=== PATIENT | female | born 1995 | race Caucasian/White ===

== ENCOUNTER 2019-09-17 10:06 | Emergency (ER) | payer OTHER, MEDICAID ==
[2019-09-17] MEDS ORDERED: Sodium Chloride 0.9% 10 ML Syringe FLUSH PRN (11:23)
[2019-09-17] MEDS ORDERED: Metoclopramide 10 MG/2 ML SDV IVPUSH ONE (11:24)
[2019-09-17] MEDS ORDERED: Sodium Chloride 0.9% 1,000 ML IV ONE (11:24)
[2019-09-17] MEDS ORDERED: diphenhydrAMINE 50 MG/ML SDV IVPUSH ONE (11:24)
[2019-09-17] MEDS ORDERED: Acetaminophen 325 MG Tab PO ONE (11:24)
--- NOTE | 2019-09-17 11:31 | EDM.PDOC ---
ED HPI GENERAL MEDICAL PROBLEM - General Chief Complaint: Headache Stated Complaint: HEADACHE/EYE PAIN (HISTORY OF BRAIN TUMORS) Time Seen by Provider: 09/17/19 11:03 Source of Information: Reports: Patient, Family (mother), RN Notes Reviewed History Limitations: Reports: No Limitations - History of Present Illness INITIAL COMMENTS - FREE TEXT/NARRATIVE: Patient is a 24-year-old female who presents to the ED for the evaluation of her headache. Patient is 32 weeks , G1, P0, and follows with Dr. Hall for MOVEMENT THERAPIST. 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 She has had 2 tumor removals in the past, with a resultant stroke when she was 11, with some right-sided residual neurological deficits. Patient states that since around , she has been having some pain to her left temporal region, eye, ear, and neck, she states she usually does get headaches from time to time, but this seems a little bit different. She states that this feels more like a pressure. She did take 2 tablets of Tylenol last night at around midnight, and she states this did not seem to help much at all. Patient denies any blurred vision or double vision. She did talk with Dr. Hall this morning, but he directed her to come to the ER for MRI for evaluation of the tumors. Mother present in the room also states that she was seen by a dentist earlier today, and had cone beam x-rays taken, and that the patient has a deep cavity that will likely require a root canal on tooth 8. The patient states that she has shooting pain, goes down the neck, into the eye and up the head and into the ear. She also states that she feels increasingly weak and tired but notes that she had a low iron count 2 weeks ago, and was started on iron supplementation along with her vitamins. She further denies any fever/chills, diarrhea, cough/shortness of breath. Mother notes that she has had increasing nausea and vomiting. Patient's neurologist is Dr. Taylor Harris at [facility] in [place]. Patient notes that she is overdue for her MRIs, and her next appointment was supposed to be September 18, but she will not be going to [place] for that appointment. Left Headache Pain Score (Numeric/FACES): 7 - Related Data Allergies Allergy/AdvReac Type Severity Reaction Status Date / Time carboplatin Allergy Anaphylactic Verified 09/17/19 10:21 Shock Home Meds: Home Meds Amoxicillin/Clavulanate K [Augmentin 875-125 MG] 1 tab PO BID #14 tablet 09/17/19 [Rx] Ferrous Sulfate [Iron] 1 mg PO DAILY 09/17/19 [History] Pnv No.95/Ferrous Fum/Folic AC [ Caplet] 1 tab PO BEDTIME 09/17/19 [Hist ory] Past Medical History MOVEMENT THERAPIST History: Reports: : 1 Para: 0 Other MOVEMENT THERAPIST History: irregular menses, breast lump ovarian cysts Neurological History: Reports: CVA, Headaches, Chronic, Other (See Below) Other Neuro History: astrocytoma tumors x5 Hematologic History: Reports: Anemia Oncologic (Cancer) History: Reports: Other (See Below) Other Oncologic History: chemo in the past to help stop growth of brain tumors. Non cancerous tumors - Past Surgical History HEENT Surgical History: Reports: Adenoidectomy, Myringotomy w Tube(s), Tonsillectomy, Other (See Below) Other HEENT Surgeries/Procedures: plastic sx for scar removal Neurological Surgical History: Reports: Other (See Below) Other Neurological Surgeries/Procedures: tumor removal x2 Social & Family History - Family History Family Medical History: Noncontributory - Tobacco Use Smoking Status *Q: Never Smoker Second Hand Smoke Exposure: No - Caffeine Use Caffeine Use: Reports: Soda - Recreational Drug Use Recreational Drug Use: No - Living Situation & Occupation Living situation: Reports: Single Occupation: Student ED ROS GENERAL - Review of Systems Review Of Systems: See Below Constitutional: Reports: Fatigue (generalized). Denies: Fever, Chills HEENT: Reports: Dental Pain (issue with tooth 8) Respiratory: Denies: Shortness of Breath, Cough Cardiovascular: Denies: Chest Pain Endocrine: Denies: Fatigue GI/Abdominal: Reports: Nausea, Vomiting. Denies: Abdominal Pain Neurological: Reports: Headache (left sided headache), Pre-Existing Deficit (right side d/t old stroke). Denies: Trouble Speaking, Difficulty Walking - Physical Exam Exam: See Below Exam Limited By: No Limitations General Appearance: Alert, WD/WN, No Apparent Distress Eye Exam: Right Eye: Normal Inspection, Left Eye: Conjunctival Injection (there are some visible conjuctival hemorrhages), Bilateral Eye: EOMI, PERRL Ears: Normal External Exam Nose: Normal Inspection Throat/Mouth: Normal Inspection, Normal Lips, Normal Teeth, Normal Gums, Normal Oropharynx, Normal Voice, No Airway Compromise Head Exam: Atraumatic, Normocephalic Neck: Normal Inspection, Supple, Non-Tender, Full Range of Motion Respiratory/Chest: No Respiratory Distress, Lungs Clear, Normal Breath Sounds, No Accessory Muscle Use, Chest Non-Tender Cardiovascular: Normal Peripheral Pulses, Regular Rate, Rhythm, No Murmur GI/Abdominal: Normal Bowel Sounds, Soft, Non-Tender, No Distention, No Mass Neuro Exam (Abbreviated): Alert, Oriented, CN II-XII Intact (grossly), Normal Cognition, Normal Gait, No Motor/Sensory Deficits Extremities: Normal Inspection, Normal Capillary Refill Psychiatric: Normal Affect, Normal Mood Skin Exam: Warm, Dry, Intact, Normal Color, No Rash Course - Vital Signs Last Recorded V/S: Last Vital Signs Temp 97.3 F 09/17/19 10:16 Pulse 92 09/17/19 10:16 Resp 18 09/17/19 10:16 BP 131/91 H 09/17/19 10:16 Pulse Ox 98 09/17/19 10:16 - Orders/Labs/Meds Orders: Active Orders 24 hr Category Date Time Status Peripheral IV Care [RC] . DIRECTED Care 09/17/19 11:24 Ordered CBC WITH MANUAL DIFF [HEME] Stat Lab 09/17/19 11:23 Ordered UA W/MICROSCOPIC [URIN] Stat Lab 09/17/19 12:16 Ordered Sodium Chloride 0.9% [Saline Flush] Med 09/17/19 11:23 Ordered 10 ml FLUSH ASDIRECTED PRN Peripheral IV Insertion Adult [OM.PC] Routine Oth 09/17/19 11:23 Ordered Medication Orders Sodium Chloride (Saline Flush) 10 ml FLUSH ASDIRECTED PRN PRN Reason: Keep Vein Open Last Admin: 09/17/19 11:41 Dose: 10 ml Documented by: NEGIN Labs: Laboratory Tests 09/17/19 09/17/19 Range/Units 11:55 11:55 WBC 9.88 (3.98-10.04) K/mm3 RBC 4.48 (3.98-5.22) M/mm3 Hgb 13.4 (11.2-15.7) gm/dl Hct 39.6 (34.1-44.9) % MCV 88.4 (79.4-94.8) fl MCH 29.9 (25.6-32.2) pg MCHC 33.8 (32.2-35.5) g/dl RDW Std Deviation 41.4 (36.4-46.3) fL Plt Count 282 (182-369) K/mm3 MPV 9.5 (9.4-12.3) fl Sodium 137 (136-145) mEq/L Potassium 3.7 (3.5-5.1) mEq/L Chloride 103 (98-107) mEq/L Carbon Dioxide 24 (21-32) mEq/L Anion Gap 13.7 (5-15) BUN 10 (7-18) mg/dL Creatinine 0.6 (0.55-1.02) mg/dL Est Cr Clr Drug Dosing 135.35 mL/min Estimated GFR (MDRD) > 60 (>60) mL/min BUN/Creatinine Ratio 16.7 (14-18) Glucose 94 (74-106) mg/dL Calcium 8.8 (8.5-10.1) mg/dL Total Bilirubin 0.4 (0.2-1.0) mg/dL AST 13 L (15-37) U/L ALT 18 (14-59) U/L Alkaline Phosphatase 80 (46-116) U/L Total Protein 6.6 (6.4-8.2) g/dl Albumin 2.7 L (3.4-5.0) g/dl Globulin 3.9 gm/dL Albumin/Globulin Ratio 0.7 L (1-2) Meds: Medications Generic Name Dose Route Start Last Admin Trade Name Freq PRN Reason Stop Dose Admin Sodium Chloride 10 ml 09/17/19 11:23 09/17/19 11:41 Saline Flush FLUSH 10 ml ASDIRECTED PRN Administration Keep Vein Open Discontinued Medications Generic Name Dose Route Start Last Admin Trade Name Freq PRN Reason Stop Dose Admin Acetaminophen 650 mg 09/17/19 11:24 09/17/19 11:42 Tylenol PO 09/17/19 11:25 650 mg NOW ONE Administration Diphenhydramine HCl 25 mg 09/17/19 11:24 09/17/19 11:42 Benadryl IVPUSH 09/17/19 11:25 25 mg ONETIME ONE Administration Sodium Chloride 1,000 mls @ 999 mls/hr 09/17/19 11:24 09/17/19 11:42 Normal Saline IV 09/17/19 12:24 999 mls/hr ONETIME ONE Administration Metoclopramide HCl 10 mg 09/17/19 11:24 09/17/19 11:42 Reglan IVPUSH 09/17/19 11:25 10 mg ONETIME ONE Administration - Re-Assessments/Exams Free Text/Narrative Re-Assessment/Exam: 09/17/19 11:35 Patient presents to the ED for the evaluation of her headaches. Have ordered brain MRI without contrast for evaluation, will get a CBC and CMP, have an IV established and give her 650 mg p.o. Tylenol along with 10 mg IV Reglan and 25 mg IV Benadryl with some fluids for initial management. 09/17/19 13:07 Laboratory evaluation demonstrates no acute abnormalities. MRI has been obtained, and is notable for previous surgery within the left temporal region, areas of increased signal as noted above which appear to be stable from an MRI we had done in 2016. No other acute abnormalities were appreciated. I did discuss these findings with her neurologist, Dr. Taylor Harris in [place], and she states it was reassuring that there is no change, from just done 4 years ago. She would recommend medications for headaches, and I guess I will refer her to the dentist for possible root canal to see if this does not help some of the issues. Departure - Departure Time of Disposition: 13:13 Disposition: Home, Self-Care 01 Condition: Good Clinical Impression: Left-sided headache - Discharge Information *PRESCRIPTION DRUG MONITORING PROGRAM REVIEWED*: No *COPY OF PRESCRIPTION DRUG MONITORING REPORT IN PATIENT RICHARD: No Instructions: General Headache Without Cause, [id number] Referrals: PCP,None [Primary Care Provider] - Forms: ED Department Discharge Additional Instructions: You were evaluated in the ED for your headache. Brain MRI done at today's visit demonstrates no acute abnormalities, and all other areas appear stable from MRIs done at this facility in 2016. Your neurologist was also consulted regarding these images, and she states this is reassuring that there is no new or acute processes happening. You were given a combination of medications and IV fluid for management. This did seem to provide you some relief of your symptoms. Recommend that you go home and rest in a quiet, darkened room. Try also to keep well hydrated. You have been started on Augmentin, an antibiotic for a suspected dental infection. Please take 1 tab 2 times a day until gone. This medication can cause some diarrhea, so recommend you take a probiotic while taking this medication. Ask the pharmacist for a good one. Your neurologist did suggest a brain MRI with contrast, when you are finished with your , for further evaluation. Please return to the ED if your symptoms should change or worsen. Sepsis Event Note (ED) - Evaluation Sepsis Screening Result: No Definite Risk - Focused Exam Vital Signs: Vital Signs Temp Pulse Resp BP Pulse Ox 09/17/19 10:16 97.3 F 92 18 131/91 H 98 - My Orders Last 24 Hours: My Active Orders 09/17/19 11:23 CBC WITH MANUAL DIFF [HEME] Stat Sodium Chloride 0.9% [Saline Flush] 10 ml FLUSH ASDIRECTED PRN Peripheral IV Insertion Adult [OM.PC] Routine 09/17/19 11:24 Peripheral IV Care [RC] . DIRECTED 09/17/19 12:16 UA W/MICROSCOPIC [URIN] Stat - Assessment/Plan Last 24 Hours: My Active Orders 09/17/19 11:23 CBC WITH MANUAL DIFF [HEME] Stat Sodium Chloride 0.9% [Saline Flush] 10 ml FLUSH ASDIRECTED PRN Peripheral IV Insertion Adult [OM.PC] Routine 09/17/19 11:24 Peripheral IV Care [RC] . DIRECTED 09/17/19 12:16 UA W/MICROSCOPIC [URIN] Stat
--- NOTE | 2019-09-17 12:58 | MR ---
MRI brain Technique: T1 sagittal; T2, T2 FLAIR, T1 and diffusion axial; T1 and T2 gradient echo coronal images were obtained. Comparison: Previous mri brain of 09/19/15. Findings: Ventricles along with basal cisterns and sulci over the convexities appear within normal. There is ex vacuole enlargement seen within the body of the lateral left ventricle. Widening of the sylvian fissure on the left side compatible with previous temporal lobe surgery. These findings are stable from previous exam. Area of encephalomalacia is noted within the white matter within the left temporal lobe which is stable. Minimal areas of increased signal within the white matter within and around the temporal region is seen which are believed to be fairly stable. Nodules noted on the left side on prior study appears less prominent on current study. No other no new areas of abnormal signal are seen. No midline shift is noted. Minimal area of abnormal diffusion seen within the Subependymal region within the left frontal area which is stable from previous exam. No other diffusion abnormalities are seen. Impression: 1. Previous surgery within the left temporal region. Areas of increased signal as noted above which are fairly stable. 2. Nothing acute is appreciated. Diagnostic code #3 This report was dictated in MDT
[2019-09-17 14:49] VITALS: BP 107/70; PULSE 90
== END 2019-09-17 14:09 | disposition home or self-care (01) ==
LOC: JD.ED 10:06
DX: R51 Headache (principal); D64.9 Anemia, unspecified; Z79.899 Other long term (current) drug therapy; Z88.8 Allergy status to other drugs, medicaments and biological substances
CPT/HCPCS: 36415; 70551; 80053; 81001; 85007; 85027; 96361; 96374; 96375; 99284; A9270; J1200; J2765; J7030

== ENCOUNTER 2021-06-12 09:06 | Observation (INO) | payer OTHER, MEDICAID ==
[2021-06-12] MEDS ORDERED: Acetaminophen 325 MG Tab PO ONE (09:45)
[2021-06-12 14:40] VITALS: BP 124/85; PULSE 74
== END 2021-06-12 14:10 | disposition home or self-care (01) ==
LOC: JD.OB 09:06
PROVIDERS: ADMIT Obstetrics & Gynecology; ATTEND Obstetrics & Gynecology
DX: O47.03 False labor before 37 completed weeks of gestation, third trimester (principal); Z3A.36 36 weeks gestation of pregnancy
CPT/HCPCS: 59025; 81001; A9270

== ENCOUNTER 2021-06-18 05:26 | Inpatient (IN) | payer OTHER, MEDICAID ==
[2021-06-18] MEDS: Lactated Ringers 1,000 ML IV SCH ×2 (06:05→08:02)
[2021-06-18] MEDS ORDERED: Ondansetron 4 MG/2 ML SDV IVPUSH PRN (06:08)
[2021-06-18] MEDS ORDERED: Calcium Carbonate 500 MG Tab.Chew PO PRN (06:08)
[2021-06-18] MEDS ORDERED: Sodium Chloride 0.9% 10 ML Syringe FLUSH PRN (06:08)
[2021-06-18] MEDS ORDERED: Nalbuphine 10 MG/1 ML Vial IVPUSH PRN (06:08)
[2021-06-18] MEDS ORDERED: Oxytocin/Lactated Ringers 10 UNIT/1,000 ML BAG IV SCH ×3 (06:15→15:13)
[2021-06-18] MEDS ORDERED: diphenhydrAMINE 50 MG/ML SDV IVPUSH PRN (07:41)
[2021-06-18] MEDS ORDERED: fentaNYL 100 MCG/2 ML SDV EPIDUR PRN (07:41)
[2021-06-18] MEDS ORDERED: Bupivacaine/fentaNYL/NS 100 ML Bag EPIDUR PRN (07:41)
[2021-06-18] MEDS ORDERED: ePHEDrine 50 MG/ML SDV IVPUSH PRN (07:41)
[2021-06-18] MEDS ORDERED: Sodium Chloride 0.9% 10 ML Syringe FLUSH SCH (09:00)
[2021-06-18] MEDS ORDERED: Acetaminophen 325 MG Tab PO PRN (15:13)
[2021-06-18] MEDS ORDERED: Docusate Sodium 100 MG Cap PO PRN (15:13)
[2021-06-18] MEDS ORDERED: Witch Hazel Medicated Pads 40/Jar TOP PRN (15:13)
[2021-06-18] MEDS ORDERED: Hydrocortisone Acetate 25 MG Supp RECTAL PRN (15:13)
[2021-06-18] MEDS ORDERED: Benzocaine/Menthol 20%-0.5% Spray 78 GM Cannister TOP PRN (15:13)
[2021-06-18] MEDS: Ibuprofen 600 MG Tab PO PRN (15:31)
[2021-06-18] MEDS ORDERED: Magnesium Hydroxide 400 MG/5 ML Susp 30 ML Cup PO PRN (21:00)
[2021-06-19] MEDS ORDERED: Bupivacaine 0.25% 10 ML SDV ONE (07:30)
[2021-06-19 08:19] VITALS: BP 111/84; PULSE 67
[2021-06-19] MEDS: Ibuprofen 600 MG Tab PO PRN (08:33)
[2021-06-19] MEDS ORDERED: Prenatal Multivitamin with Calcium/Folic Acid/Iron Tab PO SCH (09:00)
== END 2021-06-19 09:00 | disposition home or self-care (01) | DRG 806 ==
LOC: JD.OBCHECK 05:26 → JD.OB 05:29 → JD.OBCHECK 07:58 → OBSVTOIN 13:13 → JD.OB 13:14
PROVIDERS: ADMIT Obstetrics & Gynecology; ATTEND Obstetrics & Gynecology
PROC: 10D07Z6 Extraction of Products of Conception, Vacuum, Via Natural or Artificial Opening (ICD-10-PCS; principal; 2021-06-18)
PROC: 3E0R3BZ Introduction of Anesthetic Agent into Spinal Canal, Percutaneous Approach (ICD-10-PCS; 2021-06-18)
PROC: 00HU33Z Insertion of Infusion Device into Spinal Canal, Percutaneous Approach (ICD-10-PCS; 2021-06-18)
DX: O99.02 Anemia complicating childbirth (principal); O99.354 Diseases of the nervous system complicating childbirth; Z37.0 Single live birth; I69.351 Hemiplegia and hemiparesis following cerebral infarction affecting right dominant side; Z3A.37 37 weeks gestation of pregnancy; O70.1 Second degree perineal laceration during delivery; D64.9 Anemia, unspecified
CPT/HCPCS: 01967; 36415; 51701; 59025; 59409; 84112; 85025; 86592; A9270-GY; J2590; J3010; J3490; J7120